=== PATIENT | female | born 1980 ===

== ENCOUNTER 2021-07-16 07:30 | Inpatient (IN) | payer OTHER ==
[~2021-07-16] VITALS: Ht 167.6 cm; Wt 78.9 kg
[2021-07-21] MEDS ORDERED: VITAMIN D350 MC3 (07:53)
== END 2021-07-24 10:08 | disposition home or self-care (01) | DRG 743 ==
LOC: O/R 07-21 05:55 → OB/GYN 07-21 07:00
PROVIDERS: ADMIT Obstetrics & Gynecology Maternal & Fetal Medicine; ATTEND Obstetrics & Gynecology Maternal & Fetal Medicine
PROC: 0UT90ZL Resection of Uterus, Supracervical, Open Approach (ICD-10-PCS; principal; 2021-07-21 07:00)
DX: D25.1 Intramural leiomyoma of uterus (principal); N84.0 Polyp of corpus uteri; Z20.822 Contact with and (suspected) exposure to COVID-19